=== PATIENT | female | born 1995 | race Caucasian/White ===

== ENCOUNTER 2016-11-15 20:36 | Outpatient (CLI) | payer BC ==
[2016-11-15 21:01] VITALS: BP 128/76
== END 2016-11-15 22:20 | disposition home or self-care (01) ==
LOC: LDRP-OP → 2WEST 20:37 → LDRP-OP 12-11 09:33
DX: O26.893 Other specified pregnancy related conditions, third trimester (principal); Z3A.37 37 weeks gestation of pregnancy
CPT/HCPCS: 59025; G0378

== ENCOUNTER 2016-11-29 09:25 | Inpatient (IN) | payer BC ==
[2016-11-29] VITALS (20 sets, daily range): BP systolic 106–133; BP diastolic 56–84
[~2016-11-29] VITALS: Ht 170.2 cm; Wt 108.4 kg
[2016-11-29 11:23] LABS: EOSINOPHIL (%) 0.1 % (0-5); HEMATOCRIT 35.5 % (36.0-46.0); IMMATURE GRANULOCYTE COUNT 0.1 K/uL; LYMPHOCYTE COUNT 0.9 K/uL (1.0-2.8); MCH 26.3 PG (29.0-34.0); MCHC 31.5 G/DL (30.0-36.0); MCV 83.3 FL (83-99); MEAN PLAT.VOLUME 11.4 uM^3 (9.5-12.4); MONOCYTE (%) 3.1 % (3-12); MONOCYTE COUNT 0.3 K/uL (0-0.8); NEUTROPHIL COUNT 9.1 K/uL (1.8-6.4); PLATELET COUNT 215 K/uL (156-360); RBC DIS.WIDTH-CV 14.9 % (11.8-14.6); RED BLOOD COUNT 4.26 M/uL (3.80-5.20); WHITE BLOOD COUNT 10.5 K/uL (4.1-10.2)
[2016-11-30 07:03] VITALS: BP 124/66
[2016-11-30 07:39] LABS: EOSINOPHIL (%) 0.8 % (0-5); EOSINOPHIL COUNT 0.1 K/uL (0-0.3); HEMATOCRIT 26.7 % (36.0-46.0); IMMATURE GRANULOCYTE (%) 0.8 % (0.0-0.7); IMMATURE GRANULOCYTE COUNT 0.1 K/uL; MCH 26.9 PG (29.0-34.0); MCHC 32.6 G/DL (30.0-36.0); MCV 82.7 FL (83-99); MEAN PLAT.VOLUME 10.8 uM^3 (9.5-12.4); MONOCYTE (%) 6.4 % (3-12); MONOCYTE COUNT 0.6 K/uL (0-0.8); NEUTROPHIL (%) 71.2 % (45-76); NEUTROPHIL COUNT 6.8 K/uL (1.8-6.4); PLATELET COUNT 213 K/uL (156-360); RBC DIS.WIDTH-CV 15.1 % (11.8-14.6); RBC DIS.WIDTH-SD 44.8 % (39-53); WHITE BLOOD COUNT 9.5 K/uL (4.1-10.2)
[2016-11-30 07:51] LABS: RED BLOOD COUNT 3.23 M/uL (3.80-5.20)
[2016-11-30 15:26] VITALS: BP 130/80
[2016-11-30 22:34] VITALS: BP 118/64
[2016-12-01 06:17] LABS: EOSINOPHIL COUNT 0.2 K/uL (0-0.3); HEMATOCRIT 28.8 % (36.0-46.0); IMMATURE GRANULOCYTE (%) 0.9 % (0.0-0.7); IMMATURE GRANULOCYTE COUNT 0.1 K/uL; LYMPHOCYTE COUNT 2.1 K/uL (1.0-2.8); MCH 25.9 PG (29.0-34.0); MCHC 30.9 G/DL (30.0-36.0); MCV 83.7 FL (83-99); MEAN PLAT.VOLUME 10.3 uM^3 (9.5-12.4); MONOCYTE (%) 5.7 % (3-12); MONOCYTE COUNT 0.5 K/uL (0-0.8); NEUTROPHIL COUNT 5.1 K/uL (1.8-6.4); PLATELET COUNT 216 K/uL (156-360); RBC DIS.WIDTH-CV 15.3 % (11.8-14.6); RBC DIS.WIDTH-SD 46.2 % (39-53); RED BLOOD COUNT 3.44 M/uL (3.80-5.20); WHITE BLOOD COUNT 7.9 K/uL (4.1-10.2)
[2016-12-01 07:46] VITALS: BP 116/67
[2016-12-01] MEDS ORDERED: IBUPROFEN800 MG PO (10:41)
== END 2016-12-01 14:49 | disposition home or self-care (01) | DRG 775 ==
LOC: LDRP-OP 09:25 → 2WEST 09:26 → LDRP-OP 01-03 07:56
PROVIDERS: Advanced Practice Midwife
DX: O70.0 First degree perineal laceration during delivery (principal); D62 Acute posthemorrhagic anemia; Z3A.39 39 weeks gestation of pregnancy; Z37.0 Single live birth; O99.02 Anemia complicating childbirth; O77.0 Labor and delivery complicated by meconium in amniotic fluid; E66.9 Obesity, unspecified; Z68.32 Body mass index [BMI] 32.0-32.9, adult; O36.0990 Maternal care for other rhesus isoimmunization, unspecified trimester, not applicable or unspecified; O99.214 Obesity complicating childbirth
CPT/HCPCS: 85025; J2590